=== PATIENT | female | born 1945 | race Hispanic/Latino ===

== ENCOUNTER 2019-07-15 14:29 | Outpatient (CLI) | payer MEDICARE, OTHER ==
--- NOTE | 2019-07-15 15:50 | XRay Report ---
THORACIC SPINE 3 VIEWS INDICATION: BACK PAIN M54.9. COMPARISON: None. IMPRESSION: Mild osteopenia is suspected. Mild multilevel degenerative disc disease is identified. No evidence for displaced fracture, compression deformity or malalignment. The posterior ribs are gr ossly intact. Signer Name: Miles Daly Jr, MD Signed: 07/15/2019 3:46 PM Workstation Name: [id number]
--- NOTE | 2019-07-16 11:37 | Mammography Report ---
DIGITAL SCREENING MAMMOGRAM WITH CAD, 07/15/2019 INDICATION: Routine screening mammography. TECHNIQUE: Digital bilateral 2D mammography was obtained in the craniocaudal and mediolateral obliq ue projections. This examination was interpreted with the benefit of Computer-Aided Detection analysi s. COMPARISON: 05/25/2011 FINDINGS: Breast Density: The breasts are almost entirely fatty. There is no evidence of dominant mass, suspicious calcifications or architectural distortion in eithe r breast. Scattered bilateral relatively large benign calcifications. IMPRESSION: No mammographic evidence of malignancy. Follow up recommendation: Routine yearly BI-RADS Category 2: Benign. A "normal" or negative report should not discourage follow up or biopsy of a clinically significant f inding. A written summary of these findings will be mailed to the patient. The patient will be entered into a mammography reporting system which will generate a reminder letter for the patient's next appointmen t at the appropriate interval. The [employer] recommends yearly mammograms starting at age 40 and continuing as l misael as a woman is in good health. Breast MRI is recommended for women with an approximate 20-25% or greater lifetime risk of breast cancer, including women with a strong family history of breast or ova nadine cancer or who have been treated for Hodgkin's disease. Signer Name: Thompson Rodriguez MD Signed: 07/16/2019 11:33 AM Workstation Name: [id number]
--- NOTE | 2019-07-16 11:47 | Mammography Report ---
BONE DEXA CLINICAL: Postmenopausal. TECHNIQUE: 2 site bone DEXA performed on an Hologic scanner. FINDINGS: The average BMD of the lumbar spine L1-L4 is 0.602g/cm squared with a T score of -4.3 and a Z score o f -1.9. The average total BMD of the left hip is 0.790 g/cm squared with a T score of -1.2and a Z score of +0 .5. IMPRESSION: 1. WHO classification: Osteoporosis with high fracture risk based on spine measurements. 2. WHO classification Osteopenia with increased fracture risk based on left hip measurements. RECOMMENDATION: Clinical correlation and routine screening. Definitions: BMD equal bone mineral density T score = BMD related to peak bone mass of young adult ([place] expressed an standard deviation) Z score = age-matched BMD expressed in SD World health organization (WHO) diagnostic criteria Normal T score greater than equal to 1 standard deviation Osteopenia T score between -1 and -2.4 standard deviation Osteoporosis T score -2.5 standard deviation or below. Note: BMD is not the only risk factor for fracture; also consider factors such as the patient's age, risk of falling, previous osteoporotic fracture, family history of osteoporotic fractures, current sm oker and low body weight. Z scores are not calculated if greater than 80 years of age. Signer Name: Thompson Rodriguez MD Signed: 07/16/2019 11:43 AM Workstation Name: [id number]
== END 2019-07-15 14:30 | disposition home or self-care (01) ==
LOC: SPVWC 14:29
PROVIDERS: ATTEND Family Medicine
DX: Z12.31 Encounter for screening mammogram for malignant neoplasm of breast (principal); M81.0 Age-related osteoporosis without current pathological fracture; M51.34 Other intervertebral disc degeneration, thoracic region; Z78.0 Asymptomatic menopausal state
CPT/HCPCS: 72070; 77067; 77080

== ENCOUNTER 2021-04-27 15:00 | Outpatient (CLI) | payer MEDICARE ==
--- NOTE | 2021-04-28 11:01 | Mammography Report ---
DIGITAL SCREENING MAMMOGRAM WITH CAD, 04/28/2021 CLINICAL INFORMATION / INDICATION: Routine screening mammography. TECHNIQUE: Digital bilateral 2D mammography was obtained in the craniocaudal and mediolateral obliqu e projections. This examination was interpreted with the benefit of Computer-Aided Detection analysis . COMPARISON: 07/15/2019 FINDINGS: Breast Density: The breasts are almost entirely fatty. No dominant mass, suspicious calcifications, or architectural distortion in either breast. Coarse bilateral breast calcifications are again noted. There has been no significant interval change . IMPRESSION: No mammographic evidence of malignancy. Follow up recommendation: Routine yearly BI-RADS Category 2: Benign. A "normal" or negative report should not discourage follow up or biopsy of a clinically significant f inding. A written summary of these findings will be mailed to the patient. The patient will be entered into a mammography reporting system which will generate a reminder letter for the patient's next appointmen t at the appropriate interval. The [employer] recommends yearly mammograms starting at age 40 and continuing as l imsael as a woman is in good health. Breast MRI is recommended for women with an approximate 20-25% or greater lifetime risk of breast cancer, including women with a strong family history of breast or ova nadine cancer or who have been treated for Hodgkin's disease. Signer Name: Tamera Stauffer MD Signed: 04/28/2021 10:56 AM Workstation Name: [id number]
== END 2021-04-27 15:01 | disposition home or self-care (01) ==
LOC: SPVWC 15:00
PROVIDERS: ATTEND Family Medicine
DX: Z12.31 Encounter for screening mammogram for malignant neoplasm of breast (principal)
CPT/HCPCS: 77067